=== PATIENT | female | born 1990 | race Caucasian/White ===

== ENCOUNTER 2017-08-26 14:00 | Day surgery (SDC) | payer BC ==
[2017-08-26] MEDS ORDERED: MIDAZOLAM HCL 2MG/2ML VIAL IV ONE (14:01)
[2017-08-26] MEDS ORDERED: FENTANYL PF 100MCG/2ML VIAL IV ONE (14:01)
[2017-08-26] MEDS ORDERED: LIDOCAINE 2% MDV (20MG/ML) 20ML VIAL IV ONE (14:01)
[2017-08-26] MEDS ORDERED: PROPOFOL 10 MG/ML VIAL IV ONE (14:01)
--- NOTE | 2017-08-27 12:50 | Operative Note ---
DATE OF SURGERY: 08/26/2017 OPERATION: ESOPHAGOGASTRODUODENOSCOPY with biopsy. PREOPERATIVE DIAGNOSIS: Intractable heartburn despite therapy. POSTOPERATIVE DIAGNOSIS: Irregular Z line, otherwise normal exam. PROCEDURE: After informed consent was obtained from the patient, she was placed in the left lateral decubitus position in the endoscopy suite, sedated and monitored by the department of anesthesia. A well-lubricated WJF650 gastroscope was placed in the posterior oropharynx and under direct visualization passed to the proximal esophagus. The endoscope was advanced through the proximal, mid, and distal esophagus. The GE junction was irregular but no ulcers, erosions, strictures, varices, or mass lesions were seen. The remainder of the esophagus, gastric body, antrum, pylorus, duodenal bulb and sweep were unremarkable. J-turn views of the proximal stomach were unremarkable. The endoscope was straightened. The GE junction was biopsied. The endoscope removed from the patient with no new findings noted. RECOMMENDATIONS: I will start the patient on pantoprazole 40 mg twice per day for 4-6 weeks and assess her progress. If her symptoms persist, I would suggest a 48-hour [place] pH exam. As always, thank you for allowing me to participate in the healthcare of your patients. CC: Dr. Liam GREGG
== END 2017-08-26 15:51 | disposition home or self-care (01) ==
LOC: HOP 14:00
PROVIDERS: ATTEND Internal Medicine Gastroenterology
DX: K31.89 Other diseases of stomach and duodenum (principal); R12 Heartburn
CPT/HCPCS: 81025; 43239; 00731; J3010